=== PATIENT | male | born 1995 | race Caucasian/White ===

== ENCOUNTER 2019-10-04 17:45 | Emergency (ER) | payer OTHER ==
[~2019-10-04] VITALS: Ht 175.3 cm; Wt 89.3 kg
[2019-10-04 18:51] LABS: BASO % 0.3 % (0.0-1.0); EOS # 0.3 10^3/uL (0.0-0.5); EOS % 3.2 % (0.0-3.0); HEMATOCRIT 42.2 % (42.0-52.0); HEMOGLOBIN 14.6 g/dl (13.5-17.5); LYMPH # 1.8 10^3/uL (1.5-5.0); LYMPH % 23.1 % (24.0-44.0); MEAN CORPUSCULAR HEMOGLOBIN 32.8 pg (27.0-33.0); MEAN CORPUSCULAR HGB CONC 34.6 g/dl (32.0-36.5); MEAN CORPUSCULAR VOLUME 94.8 fl (80.0-96.0); MONO # 0.8 10^3/uL (0.0-0.8); NEUTROPHILS % 63.3 % (36.0-66.0); PLATELET COUNT, AUTOMATED 238 10^3/uL (150-450); RED BLOOD COUNT 4.45 10^6/uL (4.30-6.10); WHITE BLOOD COUNT 7.9 10^3/uL (4.0-10.0)
[2019-10-04] MEDS ORDERED: COLA100C5 PO (19:16)
[2019-10-04] MEDS ORDERED: ANUS2.5C2 TOP (19:16)
[2019-10-04 19:29] VITALS: BP 127/64
== END 2019-10-04 19:32 | disposition home or self-care (01) ==
LOC: M ED 17:45
DX: K62.5 Hemorrhage of anus and rectum (principal)

== ENCOUNTER 2019-11-24 08:20 | Emergency (ER) | payer OTHER ==
[~2019-11-24] VITALS: Ht 175.3 cm; Wt 85.4 kg
[~2019-11-24 08:20] MED LIST: ANUS2.5C2 TOP; COLA100C5 PO
[2019-11-24] MEDS ORDERED: AUGMENTIN 875 MG TAB PO ONE (09:15)
[2019-11-24] MEDS ORDERED: LIDOCAINE 1% MDV 20ML VIAL SC ONE (09:15)
[2019-11-24] MEDS ORDERED: AUGM875T28 PO (10:01)
[2019-11-24] MEDS ORDERED: BACI500O21 TOP (10:01)
[2019-11-24 10:13] VITALS: BP 144/70
--- NOTE | 2019-11-24 10:19 | REP ---
RIGHT HAND COMPLETE: 11/24/2019. Clinical history: Trauma. Right hand pain. Altercation. Findings: Four views show some soft tissue swelling over the dorsal aspect of the hand near the MCP joints. No swelling over the wrist. Distal radius and ulna are intact. Carpal bones and their joint spaces are unremarkable. There appears to be an old healed and remodeled 2nd metacarpal fracture distally without evidence of acute metacarpal fracture. MCP joints, IP joints and the phalanges intact. Impression: 1. No evidence of an acute fracture. Appears to be old remodeled and healed distal second metacarpal fracture. Electronically Signed by Dino Hurst MD 11/24/2019 08:20 P
== END 2019-11-24 10:19 | disposition home or self-care (01) ==
LOC: M ED 08:20
DX: S61.411A Laceration without foreign body of right hand, initial encounter (principal); Y04.0XXA Assault by unarmed brawl or fight, initial encounter; Y92.139 Unspecified place military base as the place of occurrence of the external cause; Y93.9 Activity, unspecified; Y99.0 Civilian activity done for income or pay

== ENCOUNTER 2022-01-03 16:07 | Emergency (ER) | payer OTHER ==
[~2022-01-03] VITALS: Ht 175.3 cm; Wt 89.9 kg
[2022-01-03 16:07] VITALS: BP 140/81
[~2022-01-03 16:07] MED LIST changes: +AUGM875T28 PO; +BACI500O21 TOP
== END 2022-01-03 17:23 | disposition left against medical advice (07) ==
LOC: M ED 16:07
DX: Z53.29 Procedure and treatment not carried out because of patient's decision for other reasons (principal)

== ENCOUNTER 2022-01-03 20:16 | Emergency (ER) | payer OTHER ==
[~2022-01-03] VITALS: Ht 175.3 cm; Wt 86.4 kg
[2022-01-03 23:32] VITALS: BP 135/83
== END 2022-01-04 00:45 | disposition left against medical advice (07) ==
LOC: M ED 20:16
DX: Z53.29 Procedure and treatment not carried out because of patient's decision for other reasons (principal)

== ENCOUNTER 2022-02-27 18:28 | Emergency (ER) | payer OTHER ==
[~2022-02-27] VITALS: Ht 175.3 cm; Wt 88.5 kg
[2022-02-27] MEDS ORDERED: KETOROLAC 30 MG/ML 1ML VIAL IV ONE (21:30)
[2022-02-27 21:53] LABS: BASO % 0.3 % (0.0-1.0); EOS % 0.5 % (0.0-3.0); HEMATOCRIT 45.2 % (42.0-52.0); LYMPH # 1.6 10^3/uL (1.5-5.0); LYMPH % 20.8 % (24.0-44.0); MEAN CORPUSCULAR HEMOGLOBIN 33.3 pg (27.0-33.0); MEAN CORPUSCULAR HGB CONC 35.4 g/dl (32.0-36.5); MONO # 0.7 10^3/uL (0.0-0.8); MONO % 9.3 % (2.0-8.0); NEUTROPHILS # 5.2 10^3/uL (1.5-8.5); NEUTROPHILS % 68.8 % (36.0-66.0); PLATELET COUNT, AUTOMATED 242 10^3/uL (150-450); RED BLOOD COUNT 4.81 10^6/uL (4.30-6.10); WHITE BLOOD COUNT 7.5 10^3/uL (4.0-10.0)
[2022-02-27 22:04] LABS: INR 0.97; PROTHROMBIN TIME 13.3 SECONDS (12.7-14.5)
[2022-02-27 22:07] LABS: D-DIMER QUANT 347.18 ng/ml (<500)
[2022-02-27 22:12] LABS: ERYTHROCYTE SEDIMENTATION RATE 1 mm/hr (0-15)
[2022-02-27 22:28] LABS: ALBUMIN 4.1 GM/DL (3.2-5.2); ALT/SGPT 27 U/L (12-78); BILIRUBIN,DIRECT 0.2 MG/DL (0.0-0.2); BILIRUBIN,TOTAL 0.5 MG/DL (0.2-1.0); C REACTIVE PROTEIN QUANTITATIV < 0.30 MG/DL (0.00-0.30); FREE T4 1.08 NG/DL (0.76-1.46); LIPASE 49 U/L (73-393); NT-PRO BNP 9 PG/ML (<125); TOTAL PROTEIN 7.1 GM/DL (6.4-8.2)
[2022-02-27 23:20] VITALS: BP 133/82
== END 2022-02-27 23:27 | disposition home or self-care (01) ==
LOC: M ED 18:28
DX: R07.9 Chest pain, unspecified (principal); R51.9 Headache, unspecified; R94.31 Abnormal electrocardiogram [ECG] [EKG]
CPT/HCPCS: 71046; 80047; 80076; 82550; 83690; 83880; 84439; 84443; 84484; 85025; 85379; 85610; 85652; 85730; 86140; 93005; 96374; 99284; J1885